=== PATIENT | female | born 2000 | race Caucasian/White ===

== ENCOUNTER 2020-10-21 10:28 | Emergency (ER) | payer OTHER ==
[~2020-10-21] VITALS: Ht 154.9 cm; Wt 43.1 kg
[2020-10-21 10:41] VITALS: BP 134/87
[2020-10-21] MEDS ORDERED: LORA-259 PO (10:46)
[2020-10-21] MEDS ORDERED: LORAZEPAM 0.5 MG TABLET ONE (10:47)
[2020-10-21] MEDS ORDERED: LORAZEPAM 1 MG TABLET PO ONE (11:00)
== END 2020-10-21 10:53 | disposition home or self-care (01) ==
LOC: ER 10:28
DX: F41.0 Panic disorder [episodic paroxysmal anxiety] (principal); F32.9 Major depressive disorder, single episode, unspecified; Z79.899 Other long term (current) drug therapy